=== PATIENT | male | born 1975 | race Caucasian/White ===

== ENCOUNTER 2019-05-26 09:27 | Outpatient (CLI) | payer MEDICARE, MEDICAID | END 2019-05-26 23:59 | disposition home or self-care (01) | LOC: RAD 09:27 | PROVIDERS: ATTEND Internal Medicine Gastroenterology | DX: G43.A0 Cyclical vomiting, in migraine, not intractable (principal); K92.1 Melena; K52.9 Noninfective gastroenteritis and colitis, unspecified; J45.909 Unspecified asthma, uncomplicated | CPT/HCPCS: 78264; A9541 ==